=== PATIENT | female | born 1985 | race Caucasian/White ===

== ENCOUNTER 2024-12-30 20:37 | Emergency (ER) | payer MEDICAID ==
[2024-12-30] MEDS: Sodium Chloride 0.9% 10 ML Syringe FLUSH PRN (21:24)
[2024-12-30 21:28] LABS: BASOPHILS ABSOLUTE AUTO 0.03 10^3/uL (0.00-0.10); BASOPHILS PERCENT AUTO 0.3 % (0.0-1.0); EOSINOPHILS ABSOLUTE AUTO 0.12 10^3/uL (0.10-0.30); EOSINOPHILS PERCENT AUTO 1.3 % (1.0-3.0); HEMATOCRIT 38.1 % (37.0-47.0); HEMOGLOBIN 12.1 g/dL (12.0-16.0); IMMATURE GRAN ABSOLUTE AUTO 0.02 10^3/uL (0.00-0.04); IMMATURE GRAN PERCENT AUTO 0.2 % (0.0-0.4); LYMPHOCYTES ABSOLUTE AUTO 2.58 10^3/uL (1.00-4.00); LYMPHOCYTES PERCENT AUTO 28.1 % (20.0-40.0); MEAN CORPUSCULAR HEMOGLOBIN 25.5 pg (27.0-31.0); MEAN CORPUSCULAR HGB CONC 31.8 g/dL (32.0-36.0); MEAN CORPUSCULAR VOLUME 80.4 fL (82.0-92.0); MEAN PLATELET VOLUME 9.1 fL (7.4-10.4); MONOCYTES ABSOLUTE AUTO 0.65 10^3/uL (0.10-0.80); MONOCYTES PERCENT AUTO 7.1 % (2.0-8.0); NEUTROPHILS ABSOLUTE AUTO 5.79 10^3/uL (2.50-7.00); PLATELET COUNT,PLT 289 10^3/uL (150-400); RED BLOOD CELL COUNT 4.74 10^6/uL (3.80-5.50); RED CELL DISTRIBUTION WIDTH 17.5 % (11.5-14.5); WHITE BLOOD CELL COUNT,WBC 9.19 10^3/uL (5.00-10.00)
[2024-12-30] MEDS: Sodium Chloride 0.9% 1,000 ML IV ONE ×2 (21:31→22:26)
[2024-12-30] MEDS: Ondansetron 4 MG/2 ML SDV IVPUSH ONE (21:34)
[2024-12-30 21:43] LABS: ALBUMIN 3.47 g/dL (3.40-5.00); ANION GAP 13.7 mmol/L (5-15); BILIRUBIN TOTAL 0.2 mg/dL (0.2-1.0); CALCIUM 9.3 mg/dL (8.7-10.3); CARBON DIOXIDE,CO2 27.5 mmol/L (21.0-32.0); CREATININE 0.49 mg/dL (0.51-1.17); EST CRCL DRUG DOSING (CG) 120.71 mL/min; POTASSIUM,K 3.2 mmol/L (3.5-5.1)
[2024-12-30] MEDS: Ketorolac 30 MG/ML SDV IVPUSH ONE (21:48)
[2024-12-30] MEDS: Iopamidol 755 Mg/ML 100 ML Bottle IV ONE (22:19)
[2024-12-30] MEDS: Sodium Chloride 0.9% 50 ML IV SCH (22:19)
== END 2024-12-30 23:22 | disposition home or self-care (01) ==
LOC: KA.ED 20:37
DX: J06.9 Acute upper respiratory infection, unspecified (principal); J45.909 Unspecified asthma, uncomplicated; Z79.899 Other long term (current) drug therapy; Z88.6 Allergy status to analgesic agent
CPT/HCPCS: 36415; 71045; 74177; 80053; 83690; 85025; 87428-QW; 96361; 96374; 96375; 99283; 99284-25; J1885; J2405; J7030; Q9967

== ENCOUNTER 2025-01-01 01:37 | Emergency (ER) | payer MEDICAID ==
[2025-01-01] MEDS: LORazepam 0.5 MG Tab PO ONE ×2 (02:02→02:53)
== END 2025-01-01 03:00 | disposition home or self-care (01) ==
LOC: KA.ED 01:37
DX: F41.9 Anxiety disorder, unspecified (principal); J45.909 Unspecified asthma, uncomplicated; E66.9 Obesity, unspecified; Z88.8 Allergy status to other drugs, medicaments and biological substances; Z79.899 Other long term (current) drug therapy; Z90.49 Acquired absence of other specified parts of digestive tract
CPT/HCPCS: 99283; A9270-GY

== ENCOUNTER 2025-02-23 11:12 | Emergency (ER) | payer MEDICAID ==
[2025-02-23] MEDS: Lactated Ringers 1,000 ML IV ONE (11:43)
[2025-02-23 11:58] LABS: BASOPHILS ABSOLUTE AUTO 0.05 10^3/uL (0.00-0.10); BASOPHILS PERCENT AUTO 0.6 % (0.0-1.0); EOSINOPHILS ABSOLUTE AUTO 0.12 10^3/uL (0.10-0.30); EOSINOPHILS PERCENT AUTO 1.5 % (1.0-3.0); HEMATOCRIT 39.5 % (37.0-47.0); HEMOGLOBIN 12.3 g/dL (12.0-16.0); IMMATURE GRAN ABSOLUTE AUTO 0.01 10^3/uL (0.00-0.04); IMMATURE GRAN PERCENT AUTO 0.1 % (0.0-0.4); LYMPHOCYTES ABSOLUTE AUTO 1.54 10^3/uL (1.00-4.00); LYMPHOCYTES PERCENT AUTO 19.6 % (20.0-40.0); MEAN CORPUSCULAR HEMOGLOBIN 25.1 pg (27.0-31.0); MEAN CORPUSCULAR HGB CONC 31.1 g/dL (32.0-36.0); MEAN CORPUSCULAR VOLUME 80.6 fL (82.0-92.0); MEAN PLATELET VOLUME 9.4 fL (7.4-10.4); MONOCYTES ABSOLUTE AUTO 0.55 10^3/uL (0.10-0.80); NEUTROPHILS ABSOLUTE AUTO 5.59 10^3/uL (2.50-7.00); NEUTROPHILS PERCENT AUTO 71.2 % (50.0-70.0); PLATELET COUNT,PLT 330 10^3/uL (150-400); WHITE BLOOD CELL COUNT,WBC 7.86 10^3/uL (5.00-10.00)
[2025-02-23 12:01] LABS: APPEARANCE,URINE CLEAR (CLEAR); BILIRUBIN,URINE SMALL (NEGATIVE); COLOR,URINE YELLOW (YELLOW); GLUCOSE,URINE NEGATIVE (NEGATIVE); KETONES,URINE 40 mg/dL (NEGATIVE); LEUKOCYTE ESTERASE,URINE TRACE (NEGATIVE); NITRITE,URINE NEGATIVE (NEGATIVE); OCCULT BLOOD,URINE MODERATE (NEGATIVE); PROTEIN,URINE 30 mg/dL (NEGATIVE)
[2025-02-23 12:06] LABS: ALANINE AMINOTRANSFERASE,ALT 115 U/L (14-63); ALBUMIN 3.37 g/dL (3.40-5.00); ALKALINE PHOSPHATASE 127 U/L (46-116); ANION GAP 15.1 mmol/L (5-15); ASPARTATE AMNIOTRANSFERASE,AST 46 U/L (15-37); BILIRUBIN TOTAL 0.6 mg/dL (0.2-1.0); BLOOD UREA NITROGEN,BUN 12 mg/dL (7-18); CALCIUM 8.5 mg/dL (8.7-10.3); CARBON DIOXIDE,CO2 27.1 mmol/L (21.0-32.0); CHLORIDE,CL 105 mmol/L (98-107); CREATININE 0.59 mg/dL (0.51-1.17); EST CRCL DRUG DOSING (CG) 99.24 mL/min; GLUCOSE RANDOM 109 mg/dL (70-140); LIPASE 13 U/L (16-77); POTASSIUM,K 3.2 mmol/L (3.5-5.1); SODIUM,NA 144 mmol/L (136-145)
[2025-02-23] MEDS ORDERED: Sodium Chloride 0.9% 10 ML Syringe FLUSH PRN (12:06)
[2025-02-23 12:07] LABS: ESTIMATED GFR 116 mL/min (>=60)
[2025-02-23 12:09] LABS: RBC,URINE 0-5 /HPF (0-5)
[2025-02-23 12:10] LABS: AMORPHOUS SEDIMENT,URINE RARE /HPF (0/HPF); BACTERIA,URINE FEW /HPF (NONE TO FEW); EPITHELIAL CELLS,URINE FEW /LPF; HYALINE CASTS,URINE FEW; OTHER CRYSTALS,URINE RARE /HPF
[2025-02-23 12:12] LABS: HCG QUALITATIVE,SERUM NEGATIVE (NEGATIVE)
[2025-02-23] MEDS: Ondansetron 4 MG/2 ML SDV IVPUSH ONE ×2 (12:35→12:41)
[2025-02-23] MEDS: cefTRIAXone 1 GM Vial IVPUSH ONE (12:37)
[2025-02-23] MEDS: Ondansetron 4 MG Tab.DIS PO ONE (12:51)
== END 2025-02-23 13:03 | disposition home or self-care (01) ==
LOC: KA.ED 11:12
DX: K52.9 Noninfective gastroenteritis and colitis, unspecified (principal); N30.00 Acute cystitis without hematuria; T14.8XXA Other injury of unspecified body region, initial encounter; E86.0 Dehydration; J45.909 Unspecified asthma, uncomplicated; Z88.6 Allergy status to analgesic agent; Z79.51 Long term (current) use of inhaled steroids; Z79.899 Other long term (current) drug therapy; Z90.49 Acquired absence of other specified parts of digestive tract; W57.XXXA Bitten or stung by nonvenomous insect and other nonvenomous arthropods, initial encounter
CPT/HCPCS: 36415; 80053; 81001; 83690; 84703; 85025; 96361; 96374; 99284; 99284-25; A9270-GY; J0696; J2405; J7120

== ENCOUNTER 2025-03-11 11:50 | Emergency (ER) | payer MEDICAID ==
[2025-03-11] MEDS ORDERED: Sodium Chloride 0.9% 10 ML Syringe FLUSH PRN (12:08)
[2025-03-11 12:19] LABS: BASOPHILS ABSOLUTE AUTO 0.05 10^3/uL (0.00-0.10); BASOPHILS PERCENT AUTO 0.7 % (0.0-1.0); EOSINOPHILS ABSOLUTE AUTO 0.12 10^3/uL (0.10-0.30); EOSINOPHILS PERCENT AUTO 1.7 % (1.0-3.0); IMMATURE GRAN ABSOLUTE AUTO 0.01 10^3/uL (0.00-0.04); IMMATURE GRAN PERCENT AUTO 0.1 % (0.0-0.4); LYMPHOCYTES ABSOLUTE AUTO 1.52 10^3/uL (1.00-4.00); LYMPHOCYTES PERCENT AUTO 21.0 % (20.0-40.0); MEAN PLATELET VOLUME 9.2 fL (7.4-10.4); MONOCYTES ABSOLUTE AUTO 0.47 10^3/uL (0.10-0.80); MONOCYTES PERCENT AUTO 6.5 % (2.0-8.0); NEUTROPHILS ABSOLUTE AUTO 5.07 10^3/uL (2.50-7.00); NEUTROPHILS PERCENT AUTO 70.0 % (50.0-70.0); PLATELET COUNT,PLT 291 10^3/uL (150-400); RED BLOOD CELL COUNT 5.07 10^6/uL (3.80-5.50); RED CELL DISTRIBUTION WIDTH 16.8 % (11.5-14.5); WHITE BLOOD CELL COUNT,WBC 7.24 10^3/uL (5.00-10.00)
[2025-03-11 12:22] LABS: APPEARANCE,URINE CLEAR (CLEAR); GLUCOSE,URINE NEGATIVE (NEGATIVE); OCCULT BLOOD,URINE LARGE (NEGATIVE)
[2025-03-11 12:26] LABS: EPITHELIAL CELLS,URINE FEW /LPF; OTHER CRYSTALS,URINE RARE /HPF
[2025-03-11] MEDS: Phenazopyridine 95 MG Tab PO STA ×2 (12:29→13:24)
[2025-03-11] MEDS: Ketorolac 30 MG/ML SDV IVPUSH ONE (12:30)
[2025-03-11 12:35] LABS: BLOOD UREA NITROGEN,BUN 16.0 mg/dL (7-18); CARBON DIOXIDE,CO2 23.8 mmol/L (21.0-32.0); CHLORIDE,CL 102.0 mmol/L (98-107); CREATININE 0.62 mg/dL (0.51-1.17); EST CRCL DRUG DOSING (CG) 94.44 mL/min; ESTIMATED GFR 115.0 mL/min (>=60); GLUCOSE RANDOM 100.0 mg/dL (70-140); POTASSIUM,K 3.3 mmol/L (3.5-5.1); SODIUM,NA 140.0 mmol/L (136-145)
[2025-03-11] MEDS: Potassium Chloride 20 MEQ Tab.ER PO ONE (12:59)
== END 2025-03-11 13:53 | disposition home or self-care (01) ==
LOC: KA.ED 11:50
DX: N39.0 Urinary tract infection, site not specified (principal); E86.0 Dehydration; I10 Essential (primary) hypertension; E87.6 Hypokalemia; E66.9 Obesity, unspecified; Z88.5 Allergy status to narcotic agent; Z79.899 Other long term (current) drug therapy; Z90.49 Acquired absence of other specified parts of digestive tract; Z68.41 Body mass index [BMI] 40.0-44.9, adult
CPT/HCPCS: 36415; 80048; 81001; 81025; 85025; 87086; 96361; 96374; 96375; 99284; 99284-25; A9270-GY; J0696; J1885; J7030